=== PATIENT | female | born 1960 | race Caucasian/White ===

== ENCOUNTER 2016-09-30 08:41 | Inpatient (IN) | payer OTHER ==
--- NOTE | 2016-09-23 09:45 | HP ---
Admitting History and Physical - Primary Care Physician PCP: Yamil Harris - Admission Chief Complaint: High risk for breast cancer History of Present Illness: 55 yo female presents as high risk for breast cancer sec to family hx and BRCA 1 positivity. Patient is presenting for bilateral mastectomy with immediate reconstruction. Mammogram done 10/6015 was negative as well as US done 04/2016. History Source: Patient Limitations to Obtaining History: No Limitations - Past Medical History Cardiovascular: Yes: HTN Gastrointestinal: Yes: GERD Home Medications - Allergies Allergies/Adverse Reactions: Allergies Allergy/AdvReac Type Severity Reaction Status Date / Time No Known Allergies Allergy Verified 09/23/16 09:45 - Home Medications Home Medications (free text): omeprazole. lisinopril. Vitamin D Family Disease History - Family Disease History Family Disease History: CA: Sister (ovarian cancer at 38) Other Family History: cousin x 2-breast cancer. niece-breast cancer. paternal uncle-gastric cancer. father-colon cancer. paternal uncle-multiple myeloma Review of Systems - Review of Systems Constitutional: reports: No Symptoms Breasts: reports: No Symptoms Reported Physical Examination Constitutional: Yes: Well Nourished, Calm Breast(s): Yes: Other (Bilateral breasts without palpable masses or suspicious adenopathy noted. No skin changes, nipple discharge or retraction noted.) Problem List - Problems (1) At high risk for breast cancer Assessment/Plan: Bilateral mastectomy with implant reconstruction. Code(s): Z91.89 - [facility] PERSONAL RISK FACTORS, NOT ELSEWHERE CLASSIFIED
[2016-09-23 11:44] VITALS: BMI 28.3
[2016-09-30] MEDS ORDERED: DEXAMETHASONE SOD PHOSPHATE/PF 10 MG/ML SDV ONE (09:34)
[2016-09-30] MEDS ORDERED: MIDAZOLAM HCL 2 MG/2 ML SINGLE DOSE VIAL ONE (09:34)
[2016-09-30] MEDS ORDERED: BUPIVACAINE HCL/PF 2.5 MG/ML - 30 ML VIAL IJ ONE (09:34)
[2016-09-30] MEDS ORDERED: ceFAZolin SODIUM 1 GM VIAL ONE ×2 (09:53→11:42)
[2016-09-30] MEDS ORDERED: GENTAMICIN SO4 80 MG/2 ML VIAL ONE (09:53)
[2016-09-30] MEDS ORDERED: LIDOCAINE 1%-EPI 1:100,000 30 ML MDV IJ ONE (09:54)
[2016-09-30] MEDS ORDERED: BUPIVACAINE HCL/PF 0.5% (5MG/ML) 10 ML VIAL ONE (09:54)
[2016-09-30] MEDS ORDERED: ROCURONIUM BROMIDE 50 MG/5 ML VIAL ONE ×2 (10:19→11:45)
[2016-09-30] MEDS ORDERED: LIDOCAINE HCL/PF 2% SDV 5ML VIAL ONE (10:19)
[2016-09-30] MEDS ORDERED: PROPOFOL 20 ML ONE ×3 (10:19→13:36)
[2016-09-30] MEDS ORDERED: HYDROmorphone HCL/PF 1 MG/ML VIAL (FOR PYXIS CHARGING ONLY) ONE ×2 (11:14→13:47)
[2016-09-30] MEDS ORDERED: ONDANSETRON 4 MG/2 ML VIAL ONE (11:42)
[2016-09-30] MEDS ORDERED: DEXAMETHASONE SOD PHOSPHATE 4 MG/1 ML VIAL ONE ×2 (11:42→13:48)
[2016-09-30] MEDS ORDERED: DESFLURANE GAS 240 ML BOTTLE IH ONE (11:52)
[2016-09-30] MEDS ORDERED: ACETAMINOPHEN 325 MG TABLET (FP) PO PRN (13:13)
[2016-09-30] MEDS ORDERED: ONDANSETRON 4 MG/2 ML VIAL IVPB PRN (13:13)
[2016-09-30] MEDS ORDERED: ZOLPIDEM TARTRATE 5 MG TABLET PO PRN (13:13)
[2016-09-30] MEDS ORDERED: DEXTROSE 5%-0.45% SALINE 1,000 ML IV SCH (13:15)
[2016-09-30] MEDS ORDERED: NEOSTIGMINE METHYLSULFATE 0.5 MG/ML - 10 ML MDV ONE (13:36)
[2016-09-30] MEDS ORDERED: HYDROmorphone HCL CARPU-JECT 1 MG/1 ML DISP.SYRIN IVPUSH PRN (13:48)
[2016-09-30] MEDS ORDERED: PROMETHAZINE HCL 25 MG/1 ML VIAL IVPUSH PRN (13:48)
[2016-09-30] MEDS ORDERED: oxyCODONE HCL 5 MG TABLET PO PRN ×2 (13:52→13:53)
[2016-09-30] MEDS ORDERED: LACTATED RINGERS SOLUTION 1,000 ML IV SCH (14:00)
[2016-09-30] MEDS: diazePAM 2 MG TABLET PO SCH ×2 (14:30→21:05)
[2016-09-30] MEDS: traMADol HCL 50 MG TABLET PO SCH ×2 (14:30→21:05)
[2016-09-30] MEDS ORDERED: ACETAMINOPHEN 325 MG TABLET (FP) ONE (14:35)
[2016-09-30] MEDS ORDERED: diazePAM 2 MG TABLET ONE (14:36)
[2016-09-30] MEDS ORDERED: traMADol HCL 50 MG TABLET ONE (14:36)
[2016-09-30] MEDS: CEFAZOLIN 1 GM/D5W 50 ML IVPB SCH (17:41)
[2016-09-30] MEDS: ACETAMINOPHEN 325 MG TABLET (FP) PO SCH (21:04)
[2016-10-01] MEDS: CEFAZOLIN 1 GM/D5W 50 ML IVPB SCH ×5 (00:48→23:30)
[2016-10-01] MEDS: traMADol HCL 50 MG TABLET PO SCH ×4 (01:10→20:17)
[2016-10-01] MEDS: ACETAMINOPHEN 325 MG TABLET (FP) PO SCH ×5 (01:11→20:18)
[2016-10-01] MEDS: diazePAM 2 MG TABLET PO SCH ×3 (06:25→21:27)
[2016-10-01 09:04] LABS: MCH 29.6 pg (25.7-33.7); MCHC 34.1 g/dl (32.0-36.0); MEAN CELL VOLUME 86.7 fl (80-96); MEAN PLT VOLUME 8.3 fl (7.5-11.1); PLATELET COUNT 242 K/MM3 (134-434); RDW 12.3 % (11.6-15.6); WHITE BLOOD COUNT 12.4 K/mm3 (4.0-10.8)
--- NOTE | 2016-10-01 09:08 | PN ---
Progress Note, Physician Chief Complaint: S/P bilateral mastectomy POD#1 History of Present Illness: Patient reports good pain control. She does not have much of an appetite but is tolerating liquids. Patient otherwise has no other complaints. - Current Medication List Current Medications: Active Medications Acetaminophen (Tylenol -) 650 mg PO Q6H [facility] Last Admin: 10/01/16 01:11 Dose: 650 mg Diazepam (Valium -) 2 mg PO Q8H [facility] Last Admin: 10/01/16 06:25 Dose: 2 mg Fentanyl (Sublimaze Injection -) 50 mcg IVPUSH [id number] PRN PRN Reason: PAIN Stop: 10/03/16 13:49 Hydromorphone HCl (Dilaudid Injection -) 0.5 mg IVPUSH [id number] PRN PRN Reason: PAIN Stop: 10/03/16 13:49 Cefazolin Sodium (Ancef 1 Gm Premixed Ivpb -) 50 mls @ 100 mls/hr IVPB Q6H SONIA Stop: 10/07/16 17:59 Last Admin: 10/01/16 06:25 Dose: 100 mls/hr Dextrose/Sodium Chloride (D5-1/2ns -) 1,000 mls @ 100 mls/hr IV ASDIR SONIA Lactated Ringer's (Lactated Ringers Solution) 1,000 mls @ 125 mls/hr IV ASDIR SONIA Lisinopril (Prinivil) 20 mg PO DAILY [facility]ON[facility] Ondansetron HCl (Zofran Injection) 4 mg IVPB Q6H PRN PRN Reason: NAUSEA AND/OR VOMITING Oxycodone HCl (Roxicodone -) 5 mg PO Q4H PRN PRN Reason: MODERATE PAIN Oxycodone HCl (Roxicodone -) 10 mg PO Q4H PRN PRN Reason: SEVERE PAIN Pantoprazole Sodium (Protonix -) 40 mg PO DAILY [facility] Tramadol HCl (Ultram -) 50 mg PO Q6H [facility] Last Admin: 10/01/16 01:10 Dose: 50 mg Zolpidem Tartrate (Ambien -) 5 mg PO HS PRN PRN Reason: Insomnia Last Admin: 10/01/16 01:12 Dose: 5 mg - Objective Vital Signs: Vital Signs Temperature 98.9 F 10/01/16 06:00 Pulse Rate 75 10/01/16 06:00 Respiratory Rate 18 10/01/16 06:00 Blood Pressure 112/60 10/01/16 06:00 O2 Sat by Pulse Oximetry (%) 100 10/01/16 08:07 Constitutional: Yes: Well Nourished, Calm Breast(s): Yes: Other (Bilateral flaps with good color. Nipple areola complex is pink. FROILAN x 4 with serosanginous discharge noted.) Problem List - Problems (1) At high risk for breast cancer Code(s): Z91.89 - [facility] PERSONAL RISK FACTORS, NOT ELSEWHERE CLASSIFIED Assessment/Plan Assessment: POD #1 bilateral mastectomy with implant reconstruction Plan: DC IVF when tolerating po well Continue IV axbx Plan for discharge tomorrow with pain meds and axbx
--- NOTE | 2016-10-01 09:55 | PN ---
Progress Note (short form) - Note Progress Note: ANESTHESIOLOGY POST-OP CHECK 55F s/p B/L mastectomy under general anesthesia POD #1. Denies N/V, tolerating PO, ambulating, voiding. PAin /10. Vital Signs Temperature 98.9 F 10/01/16 06:00 Pulse Rate 75 10/01/16 06:00 Respiratory Rate 18 10/01/16 06:00 Blood Pressure 112/60 10/01/16 06:00 O2 Sat by Pulse Oximetry (%) 100 10/01/16 08:07 Active Medications Acetaminophen (Tylenol -) 650 mg PO Q6H [facility] Last Admin: 10/01/16 01:11 Dose: 650 mg Diazepam (Valium -) 2 mg PO Q8H [facility] Last Admin: 10/01/16 06:25 Dose: 2 mg Fentanyl (Sublimaze Injection -) 50 mcg IVPUSH [id number] PRN PRN Reason: PAIN Stop: 10/03/16 13:49 Hydromorphone HCl (Dilaudid Injection -) 0.5 mg IVPUSH [id number] PRN PRN Reason: PAIN Stop: 10/03/16 13:49 Cefazolin Sodium (Ancef 1 Gm Premixed Ivpb -) 50 mls @ 100 mls/hr IVPB Q6H [facility] Stop: 10/07/16 17:59 Last Admin: 10/01/16 06:25 Dose: 100 mls/hr Dextrose/Sodium Chloride (D5-1/2ns -) 1,000 mls @ 100 mls/hr IV ASDIR SONIA Lactated Ringer's (Lactated Ringers Solution) 1,000 mls @ 125 mls/hr IV ASDIR [facility] Lisinopril (Prinivil) 20 mg PO DAILY [facility] Ondansetron HCl (Zofran Injection) 4 mg IVPB Q6H PRN PRN Reason: NAUSEA AND/OR VOMITING Oxycodone HCl (Roxicodone -) 5 mg PO Q4H PRN PRN Reason: MODERATE PAIN Oxycodone HCl (Roxicodone -) 10 mg PO Q4H PRN PRN Reason: SEVERE PAIN Pantoprazole Sodium (Protonix -) 40 mg PO DAILY [facility] Tramadol HCl (Ultram -) 50 mg PO Q6H [facility] Last Admin: 10/01/16 01:10 Dose: 50 mg Zolpidem Tartrate (Ambien -) 5 mg PO HS PRN PRN Reason: Insomnia Last Admin: 10/01/16 01:12 Dose: 5 mg GEn: Awake, alert No apparent anesthesia complications. Pain well controlled. Continue management as per primary team
[2016-10-01] MEDS: LISINOPRIL 20 MG TABLET (FP) PO SCH (10:10)
[2016-10-01] MEDS: PANTOPRAZOLE 40 MG TABLET (FP) PO SCH (12:15)
--- NOTE | 2016-10-01 13:55 | OP ---
DATE OF OPERATION: 09/30/2016 PREOPERATIVE DIAGNOSIS: High risk for breast cancer with genetic susceptibility, BRCA1 positive mutation. POSTOPERATIVE DIAGNOSIS: High risk for breast cancer with genetic susceptibility, BRCA1 positive mutation. PROCEDURE: Bilateral total nipple-sparing mastectomies through an inframammary approach with bilateral direct implant reconstruction. ANESTHESIA: General endotracheal anesthesia. PRIMARY SURGEON: Dena Hollins MD WIRE BORDER ASSEMBLER: KEON Mayer PRIMARY SURGEON FOR THE BILATERAL DIRECT IMPLANT RECONSTRUCTION WITH ALLODERM: Dena Holt MD WIRE BORDER ASSEMBLER: KEON Robins COMPLICATIONS: There were no complications. INDICATIONS: Briefly, the patient is a 55-year-old postmenopausal white female of [place] descent. She has a strong family history of breast and ovarian cancer with a sister who of ovarian cancer at age 42. She has a paternal cousin with breast cancer at age 54. A paternal niece had breast cancer at age 31. A paternal second cousin had breast cancer at age 35. The patient tested BRCA1 positive with a deletion in exon 24. She had a prophylactic bilateral salpingo-oophorecetomy in March of 2016. She had a recent mammography, ultrasound, and MRI, which were essentially negative other than a finding in the upper outer aspect of the right breast on MRI, but ultrasound directed in this area was negative, likely consistent with a benign intramammary lymph node. The patient understood her options for risk reduction due to this BRCA1 positive mutation. She was counseled as to close surveillance versus prophylactic mastectomy versus tamoxifen for risk reduction. She decided to undergo prophylactic risk-reduction mastectomy. She understood our technique of doing a nipple-sparing mastectomy through an inframammary approach. She understood that we do retroareolar biopsies at the time of surgery, and if these showed cancer, we would remove the nipples. She understood the lack of any evidence shown for doing prophylactic sentinel lymph node biopsy. She had seen Dr. Holt and understood the direct implant reconstruction technique. She understood all risks and complications of the procedure including the risks of nipple loss hematoma, infection, and skin flap necrosis. DESCRIPTION OF PROCEDURE: The patient was brought in for the procedure through same-day surgery on September 30, 2016. In the holding area, site verification was made and informed consent was obtained. She was marked preoperatively by the plastic surgeon. She was brought into the operating room and laid on the OR table in the supine position. Venodynes were placed on the lower extremities prior to induction. She received a gram of Ancef prior to incision. She underwent general endotracheal anesthesia. Both breasts were sterilely prepped and draped in the usual fashion. Bilateral inframammary incisions were marked out, about 10 cm in length, symmetrically in the inframammary folds. The left mastectomy was first approached. Incision was made, and the skin edges were everted, and the breast tissue retracted inferiorly using Denison clamps. The skin flap was raised using the PEAK radiofrequency device superiorly to the level of the clavicle, medially to the level of the sternum, laterally to the level of the latissimus, and inferiorly below the level of the inframammary fold. The breast was taken down off the pectoralis major muscle from inferomedial to superolateral, completely removed intact. It was oriented with the long-lateral short-superior suture and weighed to allow for appropriate cosmetic result. Skin flaps were trimmed for good cosmetic result. A retroareolar biopsy was taken underneath the left nipple areolar complex and sent for frozen section, came back negative, so, the left nipple was spared. Hemostasis was achieved, and the wound was copiously irrigated with warm sterile saline. At this point, the right breast was approached. Again, inframammary incision was made about 10 cm in length symmetrical to the left inframammary incision. The skin edges were everted, and the breast tissue retracted inferiorly using Denison clamps. The skin flap was raised using the PEAK radiofrequency device superiorly to the level of the clavicle, medially to the level of the sternum, laterally to the level of the latissimus, and inferiorly below the level of the inframammary fold. The breast was taken down off the pectoralis major muscle using electrocautery from inferomedial to superolateral, and completely removed intact. It was oriented with the long-lateral short-superior suture and weighed to allow for appropriate cosmetic result. Skin flaps were trimmed for good cosmetic result, and a retroareolar biopsy was taken underneath the right nipple areolar complex, sent for frozen section, came back negative, sot the right nipple was spared. Hemostasis was achieved, and the wound was copiously irrigated with warm sterile saline. Both breast reconstructions were performed by Dr. Holt, placing the implants in a subpectoral location and suturing Alloderm to inferolateral aspects of both pectoralis major muscles until after the direct implant reconstructions. Two Hitesh drains were placed around each implant, brought through separate stab incisions on the lateral skin flaps, which were secured in place using 3-0 nylon suture. All wounds would be closed by plastic surgery using interrupted 3-0 deep dermal PDS suture and a running 4-0 subcuticular PDS suture. The patient did have a pectoral block prior to coming to the OR for postoperative pain control. The patient was extubated at the end of the case and brought to the post-anesthesia care unit in stable condition, where she will be admitted postoperatively for pain management and wound management. She will be placed on a DONOR SERVICES TECHNICIAN for postoperative pain control. All sponge and needle counts were correct at the end of the case. Estimated blood loss was about 100 mL, and she was hemodynamically stable throughout. DENA HOLLINS M.D. [id number]
[2016-10-02] MEDS: traMADol HCL 50 MG TABLET PO SCH ×2 (02:07→10:07)
[2016-10-02] MEDS: ACETAMINOPHEN 325 MG TABLET (FP) PO SCH ×2 (02:11→10:06)
[2016-10-02 06:41] VITALS: BP 129/69; PULSE 63; TEMP 98.1
[2016-10-02] MEDS: diazePAM 2 MG TABLET PO SCH (06:43)
[2016-10-02] MEDS: CEFAZOLIN 1 GM/D5W 50 ML IVPB SCH (06:43)
--- NOTE | 2016-10-02 09:12 | DS ---
Physical Examination Vital Signs: Vital Signs Temperature 98.1 F 10/02/16 06:00 Pulse Rate 63 10/02/16 06:00 Respiratory Rate 18 10/02/16 06:00 Blood Pressure 129/69 10/02/16 06:00 O2 Sat by Pulse Oximetry (%) 97 10/02/16 06:00 Constitutional: Yes: Well Nourished, No Distress Wound/Incision: Yes: Dressing Dry and Intact (Skin flaps and nipples warm and viable. JPs with serosanguineous effluent.) Neurological: Yes: Alert, Oriented Labs: CBC, BMP 10/01/16 07:47 Discharge Summary Reason For Visit: GENETIC SUSCEPTIBILITY Current Active Problems At high risk for breast cancer (Acute) Procedures: Principal: Bilateral prophylactic nipple sparing mastectomies with direct implant reconstruction Hospital Course: Patient did well after surgery, afebrile with stable vital signs. Pain well controlled. Condition: Good - Instructions Diet, Activity, Other Instructions: BREAST SURGERY INSTRUCTIONS Abraham Harris M.D., MARLENY Harris M.D., MARLENY Velázquez M.D., FACS 1. Please call the office at to make a follow up appointment with your surgeon. This number can be also used for any urgent issues you may have. 2. Call us immediately if any of the following occur: *Bleeding from the incision or drain site (a small amount is normal) *Fever or chills *Redness and worsening tenderness around the surgical site *Drainage of pus or fluid from the incision or drain site 3. You may change the surgical dressing two (2) days after your surgery, and may shower then. If you have drains, you may shower after they have been removed, until then take a sponge bath. 4. It is normal for there to be some bruising and tenderness around the surgical site, and the breast may also be firm in this area. 5. Please wear a comfortable bra (sports or surgical bra) all day and all night until your first follow-up visit with your surgeon. 6. The pain medicine you have been prescribed may make you constipated; make sure you drink plenty of water. You may use an over the counter laxative if needed. 7. You may resume your normal diet after surgery, although you may want to avoid rich foods for the first twenty-four (24) hours after surgery. Alcoholic drinks should be avoided while taking the prescribed pain medicine. 8. You may resume normal activities as long as there is no discomfort, but do not do upper body exercises until after your follow-up appointment. Do not lift anything heavier than a large phone book. You may resume driving once you have stopped taking the prescribed pain medicine and feel comfortable doing arm movements. Disposition: HOME - Home Medications Comprehensive Discharge Medication List: Ambulatory Orders Lisinopril [Prinivil] 20 mg PO DAILY 09/23/16 Multivitamin/Iron/Folic Acid [Centrum Women Tablet] 1 each PO DAILY 09/23/16 Omeprazole 40 mg PO DAILY 09/23/16
[2016-10-02] MEDS: PANTOPRAZOLE 40 MG TABLET (FP) PO SCH (10:06)
[2016-10-02] MEDS: LISINOPRIL 20 MG TABLET (FP) PO SCH (10:08)
--- NOTE | 2016-10-03 14:02 | OP ---
DATE OF OPERATION: 09/30/2016 SURGEON: Jose Ramon Holt MD INCINERATOR ATTENDANT SURGEON: Ana Stern PA-C This is a combined dictation with Dr. Dena Harris for bilateral mastectomy and reconstruction. This will be the dictation for the reconstructive purposes. Dr. Harris will dictate a separate operative note for the mastectomy portion. PREOPERATIVE DIAGNOSIS: POSTOPERATIVE DIAGNOSIS: OPERATIVE PROCEDURE: INDICATION: The patient with a strong family history of breast cancer was brought to the operating room by Dr. Dena Harris for bilateral bilateral mastectomy and a reconstructive procedure was carried out in the usual fashion by Dr. Harris. The risks and benefits of surgical versus nonsurgical alternatives as well as complications were described to the patient on multiple occasions preoperatively. She understands the surgical risks and benefits. OPERATIVE PROCEDURE IN DETAIL: The patient was taken to the operating room and after induction of general anesthesia in the supine position, both arms were extended and padded and Venodyne boots were placed. The entire chest wall was painted with ChloraPrep solution over the entire extent. Dr. Harris then performed bilateral mastectomies which will be dictated under separate cover. Upon completion of the mastectomy the wounds were copiously irrigated and hemostasis was obtained. Attention was then turned to the reconstructive procedure. The pectoralis major muscle was elevated from its position starting laterally and then elevating the muscle medially to the sternal fibers down to the inframammary folds elevating the origin of the muscle and creating a pocket for the new implant procedure. At this point, after elevating the muscle, AlloDerm contour large perforated Duo was rehydrated on the back table and then brought into the field. This was then sutured to the pectoralis major muscle beginning in the medial side along the inferior border of the muscle out to the lateral mammary fold. The AlloDerm was sutured using 3-0 Vicryl in a running fashion, 1 suture laterally and 1 suture medially. This was accomplished. Attention was turned the reconstructive implant. A Natrelle Inspira cohesive breast implant style SCF 650 mL was placed into the right breast pocket. The right breast tissue excised was 390 g of tissue. The left excised was 604 g of tissue which correlated to the asymmetry preoperatively. The exact same procedure was carried out symmetrically on the opposite left side. The same implant a Natrelle Inspira cohesive breast implant style SCF 650 mL was placed. The remaining sutures were closed on both sides symmetrically. The skin and subcutaneous tissue were closed over 2 15-Hitesh drains which were brought out through separate stab wounds. After copious irrigation of triple antibiotic solution in the usual fashion. The wound was closed in layers using 3 PDS suture in the deep dermis, and 4-0 in a subcuticular fashion. Dry sterile dressings with Steri-Strips, compression, Tegaderm and a fluff dressing with a Surgi-Bra was placed. She was awakened, extubated and transferred to the recovery room in satisfactory condition. The patient tolerated the procedure well. DENA HOLT M.D. [id number]
--- NOTE | 2016-10-05 15:16 | PATH ---
Surgical Pathology Report Patient Name: EBONI REHMAN Med. Rec. #: [id number] /Age/Gender: 1960 (Age: 55) / F Account: [id number] Location: [facility] MED[facility] Taken: 09/30/2016 Received: 09/30/2016 Reported: 10/05/2016 Physicians: Yamil Harris M.D. Specimen(s) Received A: RIGHT BREAST RETROAREOLAR BIOPSY. FS B: LEFT BREAST RETROAREOLR BIOPSY. FS C: RIGHT MASTECTOMY D: LEFT MASTECTOMY Clinical History Genetic susceptibility BRCA1+ Intraoperative Consult Diagnosis A. Right breast retroareolar biopsy, frozen section: Negative for malignancy. B. Left breast retroareolar biopsy, frozen section: Negative for malignancy. Evette Arora MD, 09/30/16. Final Diagnosis A. BREAST, RIGHT, RETROAREOLAR BIOPSY: BENIGN BREAST TISSUE. B. BREAST, LEFT, RETROAREOLAR BIOPSY: BENIGN BREAST TISSUE. C. BREAST, RIGHT, NIPPLE SPARING MASTECTOMY: INVASIVE DUCTAL CARCINOMA, POORLY DIFFERENTIATED, WITH SIGNIFICANT STROMAL LYMPHOCYTE INFILTRATION (THERESA HISTOLOGIC SCORE OF 8: TUBULE FORMATION: 3 OF 3, NUCLEAR PLEOMORPHISM 3 OF 3, MITOTIC RATE 2 OF 3). CARCINOMA FOCALITY AND SIZE: SINGLE FOCUS, 4.5 MM, UPPER INNER QUADRANT. SURGICAL RESECTION MARGINS: WIDELY NEGATIVE FOR CARCINOMA; CLOSEST RESECTION MARGIN (DEEP) IS 1.2 CM FROM INVASIVE CARCINOMA. LYMPHOVASCULAR INVASION: NOT IDENTIFIED. PERINEURAL INVASION: NOT IDENTIFIED. SURROUNDING BREAST TISSUE: FIBROCYSTIC CHANGE WITH CYSTIC APOCRINE METAPLASIA AND DUCT DILATATION. PATHOLOGIC STAGING: pT1a pNX (ALSO REFER TO CHECKLIST BELOW). RECEPTOR STATUS: REFER TO CHECKLIST BELOW. D. BREAST, LEFT, NIPPLE SPARING MASTECTOMY: BENIGN BREAST TISSUE WITH FIBROCYSTIC CHANGE WITH DUCT DILATATION. FOCAL BENIGN SKELETAL MUSCLE. Note: The case was discussed with Dr. Harris on 10/05/16. Comments Breast Invasive Carcinoma: Surgical Pathology Cancer Case Summary Based on AJCC/UICC TNM, 7th edition Procedure _x_ Nipple sparing mastectomy Lymph Node Sampling _x_ Not performed Specimen Laterality _x_ Right Tumor Size: Size of Largest Invasive Carcinoma Greatest dimension of largest focus of invasion over 1 mm: 4.5 mm (0.45 cm) Tumor Focality _x_ Single focus of invasive carcinoma Macroscopic and Microscopic Extent of Tumor Skin _x_ No skin present Nipple _x_ Not applicable (excisions less than total mastectomy) Skeletal Muscle _x_ No skeletal muscle present in part C Ductal Carcinoma In Situ (DCIS) _x_ No DCIS is present Histologic Type of Invasive Carcinoma : _x_ Invasive carcinoma of no special type (ductal, not otherwise specified) Histologic Grade: (Theresa Histologic Score) Tubular Differentiation _x_ Score 3 Nuclear Pleomorphism _x_ Score 3 Mitotic Rate _x_ Score 2 Overall Grade _x_ Grade 3: scores of 8 (poorly differentiated) Margins _x_ Margins uninvolved by invasive carcinoma (required only if residual invasive carcinoma is present in specimen) Distance from closest margin: 12 mm Specify margin: deep Lymph-Vascular Invasion _x_ Not identified Lymph Nodes Total number of lymph nodes examined (sentinel and nonsentinel): 0 Number of sentinel lymph nodes examined: 0 Number of lymph nodes with macrometastases ( > 2 mm): n/a Number of lymph nodes with micrometastases (>0.2 mm to 2 mm and/or >200cells):n/a Number of lymph nodes with isolated tumor cells (=0.2 mm and =200 cells): n/a Size of largest metastatic deposit (if present): n/a Extranodal Extension _x_ Not applicable Pathologic Staging (pTNM) Primary Tumor (Invasive Carcinoma): pT1a Regional Lymph Nodes (pN): pNX Distant Metastasis (pM): not applicable Biomarker Studies Results of ER and AZ studies performed on this specimen (block # C1) at [facility] are as follows: ER (clone [id number] mouse monoclonal antibody by [employer]): 0% nuclear staining (Negative). AZ (clone16 mouse monoclonal antibody by [employer]): 0% nuclear staining (Negative). Results of Her2 studies will be reported separately in an addendum. Positive and negative controls (internal if applicable) show appropriate results. Formalin fixation and cold ischemic times are within current ASCO/CAP recommendations for ER, AZ and Her2 testing. Electronically Signed Mauricio Nuñez M.D. Addendum Reported: 10/07/2016 Addendum Diagnosis Results of Her2 (IHC) & Ki-67 studies performed on block C1 at [place], [place] ([id number]) are as follows: Her2 IHC (EP3 from [employer], formerly known as [id number], using [employer] Polymer Refine detection kit): 1+ (Negative) Ki-67: ~30-35% (High proliferation index) Positive and negative controls (internal if applicable) show appropriate results. Mauricio Nuñez M.D. Gross Description A. Received fresh for frozen section labeled "right breast retroareolar biopsy" is a 1.8 x 1.2 x 1.0 cm portion of red and yellow soft tissue. A frozen section is performed on the specimen. The frozen section residue is entirely submitted in one cassette. B. Received fresh for frozen section labeled "left breast retroareolar biopsy" is a 2.0 x 1.4 x 1.0 cm portion of red and yellow soft tissue. A frozen section is performed on the specimen. The frozen section residue is entirely submitted in one cassette. C. Received in formalin, labeled "right mastectomy" is a 455 gram, 19.5 x 16.0 x 3.0 cm. right mastectomy specimen with a short suture marking the superior aspect and a long suture marking the lateral aspect of the specimen, per the surgeon. There is no skin or nipple present. The deep margin is inked black and the anterior soft tissue margin is inked blue. The specimen is serially sectioned from lateral to medial. Sectioning reveals a 0.4 x 0.4 x 0.4 cm baltazar, firm nodule in the upper inner quadrant (UIQ). The nodule is at 1.2 cm from the deep margin. The remaining breast parenchyma displays multiple foci of white fibrous tissue. Food Tray Assembler sections are submitted in 14 cassettes as follows: 1-2-UIQ nodule with deep margin; 8-5-fjnxzdnstp UIQ tissue; 5-6-lower inner quadrant; 7-9-upper outer quadrant; 10-12-lower outer quadrant; 13-anterior soft tissue margin; 14-deep margin. Time to formalin fixation: 60min Total formalin fixation time: ~29h D. Received in formalin, labeled "left mastectomy" is a 586 gram, 21.0 x 16.0 x 4.5 cm left mastectomy specimen with a short suture marking the superior aspect and a long suture marking the lateral aspect of the specimen, per the surgeon. There is no skin or nipple present. The deep margin is inked black and the anterior soft tissue margin is inked blue. The specimen is serially sectioned from medial to lateral. Sectioning reveals multiple foci of white fibrous tissue. No definitive masses are identified. Food Tray Assembler sections are submitted in 12 cassettes as follows: 1-3-upper outer quadrant; 4-5-lower outer quadrant; 6-7-upper inner quadrant; 8-10-lower inner quadrant; 11-anterior soft tissue margin; 12-deep margin. Time to formalin fixation: 49min Total formalin fixation time: ~29h 09/30/201609/30/2016
== END 2016-10-02 11:30 | disposition home or self-care (01) | DRG 585 ==
LOC: FM/S 08:41
PROVIDERS: ADMIT Surgery Surgical Oncology; ATTEND Surgery Surgical Oncology
PROC: 0HTV0ZZ Resection of Bilateral Breast, Open Approach (ICD-10-PCS; principal; 2016-09-30 11:08)
PROC: 0HUV0KZ Supplement Bilateral Breast with Nonautologous Tissue Substitute, Open Approach (ICD-10-PCS; 2016-09-30 11:08)
DX: Z40.01 Encounter for prophylactic removal of breast (principal); Z80.3 Family history of malignant neoplasm of breast; I10 Essential (primary) hypertension; K21.9 Gastro-esophageal reflux disease without esophagitis
CPT/HCPCS: 36415; 85027; 88305-TC; 88307-TC; 88331-TC; 94010; 94760

== ENCOUNTER 2017-05-12 09:24 | Day surgery (SDC) | payer OTHER ==
--- NOTE | 2017-05-09 09:21 | HP ---
Admitting History and Physical - Primary Care Physician PCP: Yamil Harris - Admission Chief Complaint: Right breast cancer History of Present Illness: 55 year old postmenapausal female BRCA 1 positive. She underwent BSO 2015 which was benign. 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 She underwent chemotherapy with Dr Shen. She is here for right entenel node biopsy posiible dissection History Source: Patient Limitations to Obtaining History: No Limitations - Past Medical History Cardiovascular: Yes: HTN Gastrointestinal: Yes: GERD - Past Surgical History Past Surgical History: Yes: Cholecystectomy (2011), Mastectomy (Bilateral mastectomies with incidental right breast cancer S/P chemotherapy) Additional Past Surgical History: BSO 03/2016 benign due to BRCA positivity - Smoking History Smoking history: Never smoked Have you smoked in the past 12 months: No - Alcohol/Substance Use Hx Alcohol Use: Yes (RARE) Home Medications - Allergies Allergies/Adverse Reactions: Allergies Allergy/AdvReac Type Severity Reaction Status Date / Time No Known Allergies Allergy Verified 09/23/16 09:45 - Home Medications Home Medications: Ambulatory Orders Lisinopril [Prinivil] 20 mg PO DAILY 09/23/16 Multivitamin/Iron/Folic Acid [Centrum Women Tablet] 1 each PO DAILY 09/23/16 Omeprazole 40 mg PO DAILY 09/23/16 Family Disease History - Family Disease History Family Disease History: CA: Sister (ovarian cancer at 38) Other Family History: pat cousin breast ca 54. pat 2nd cousin breast 35. neice 31 breast ca. paternal uncle mutiple myeloma 72 and uncle gastric ca 69 Physical Examination Constitutional: Yes: Well Nourished Breast(s): Yes: Other ( Bilateral nipple sparing mastctomies with implant reconstruction her incisions are well healed excellent cosmetic results, no palpable masses over implants or adenopathy) Problem List - Problems (1) Breast cancer, right breast Code(s): C50.911 - MALIGNANT NEOPLASM OF UNSP SITE OF RIGHT FEMALE BREAST Qualifiers: Breast location: upper inner quadrant of breast Patient sex: female Assessment/Plan Right sentenel node biopsy possible axillary node dissection, lymphoscintogram
[2017-05-10 14:55] VITALS: BMI 28.3
[2017-05-12] MEDS ORDERED: PROPOFOL 20 ML ONE (09:33)
[2017-05-12] MEDS ORDERED: MIDAZOLAM HCL 2 MG/2 ML SINGLE DOSE VIAL ONE (09:34)
[2017-05-12] MEDS ORDERED: SUCCINYLCHOLINE CHLORIDE 200 MG/10 ML VIAL ONE (09:34)
[2017-05-12] MEDS ORDERED: LIDOCAINE HCL/PF 2% SDV 5ML VIAL ONE (09:35)
[2017-05-12] MEDS ORDERED: BUPIVACAINE HCL/PF 2.5 MG/ML - 30 ML VIAL IJ ONE (09:49)
[2017-05-12] MEDS ORDERED: LIDOCAINE HCL 1%, 10 MG/ML (20ML VIAL) ONE (09:49)
[2017-05-12] MEDS ORDERED: ISOSULFAN BLUE 10 MG/ML VIAL SQ ONE (09:49)
[2017-05-12] MEDS ORDERED: LACTATED RINGERS SOLUTION 1,000 ML IV SCH ×2 (10:00→11:45)
[2017-05-12] MEDS ORDERED: oxyCODONE HCL 5 MG TABLET PO PRN (10:00)
[2017-05-12] MEDS ORDERED: ONDANSETRON 4 MG/2 ML VIAL IVPUSH PRN ×3 (10:00→11:42)
[2017-05-12] MEDS ORDERED: ONDANSETRON 4 MG/2 ML VIAL ONE (10:21)
[2017-05-12] MEDS ORDERED: ceFAZolin SODIUM 1 GM VIAL ONE (10:21)
[2017-05-12] MEDS ORDERED: DEXAMETHASONE SOD PHOSPHATE 4 MG/1 ML VIAL ONE (10:21)
[2017-05-12] MEDS ORDERED: BUPIVACAINE HCL/PF 0.25% (2.5MG/ML) 10 ML VIAL IJ ONE ×4 (10:59→11:19)
[2017-05-12] MEDS ORDERED: KETOROLAC TROMETHAMINE 30 MG/1 ML VIAL IVPUSH PRN (11:36)
[2017-05-12] MEDS ORDERED: DEXTROSE 5%-0.45% SALINE 1,000 ML IV SCH (11:45)
[2017-05-12] MEDS ORDERED: oxyCODONE HCL 5 MG TABLET ONE (12:42)
[2017-05-12] MEDS ORDERED: oxyCODONE HCL 5 MG TABLET PO ONE (12:42)
[2017-05-12 13:34] VITALS: TEMP 98.5
[2017-05-12 13:36] VITALS: BP 143/92; PULSE 78
--- NOTE | 2017-05-13 11:27 | OP ---
DATE OF OPERATION: 05/12/2014 PREOPERATIVE DIAGNOSIS: BRCA positive with history of bilateral prophylactic nipple-sparing mastectomy with a right breast upper inner quadrant cancer incidentally found. POSTOPERATIVE DIAGNOSIS: BRCA positive with history of bilateral prophylactic nipple-sparing mastectomy with a right breast upper inner quadrant cancer incidentally found. PROCEDURE: Right axillary sentinel lymph node biopsy. ANESTHESIA: General laryngeal mask airway anesthesia. PRIMARY SURGEON: Dena Harris MD COIL STRAPPER: KEON Mayer COMPLICATIONS: None. INDICATION FOR PROCEDURE: Briefly, the patient is a 56-year-old, G3, P2, postmenopausal white female of [place] descent. She has a strong family history with her sister who from ovarian cancer at age 42, as well as a paternal cousin who had breast cancer at age 54, a paternal niece had breast cancer at age 31, and a paternal second cousin had breast cancer at age 35. A paternal uncle had multiple myeloma, and another paternal uncle had gastric cancer. The patient was found to be BRCA positive with a lesion in exon 24. She underwent bilateral prophylactic nipple-sparing mastectomies on September 30, 2016, and final pathology did show a 4.5-mm poorly-differentiated invasive duct cancer in the upper inner aspect of the right breast which was triple negative. The patient was seen by Medical Oncology and it was decided to start chemotherapy and she underwent AC-T chemotherapy which she finished on April 01, 2017. Given this incidental cancer, it was decided that a lymph node evaluation should be performed, and she is brought in now for right axillary sentinel lymph node biopsy with possible axillary dissection if no sentinel nodes could be found. The patient underwent lymphoscintigraphy through a periareolar intradermal injection of technetium 99 at [facility] the morning of the surgery and then was brought to the [facility]. In the holding area, site verification was made, and informed consent was obtained. DESCRIPTION OF PROCEDURE: She was brought into the operating room and laid on the OR table in the supine position. Venodynes were placed on the lower extremities prior to induction. She received a gram of Ancef prior to incision. Next, 3 mL of Lymphazurin blue were injected intradermally around the periareolar region of the right breast nipple-areolar complex and massaged was instituted. The right breast was then sterilely prepped and draped in the usual fashion, and she did undergo general laryngeal mask airway anesthesia. An incision was made just below the hair-bearing area of the right axilla, and the Neoprobe was used, but there was no specific hot site found with the Neoprobe. Dissection was undertaken, and there was a faint count towards the upper level I region of the right axilla. On inspection, there was a blue lymphatic coursing to 2 blue hot lymph nodes in the upper level I region in the right axilla. These 2 nodes were dissected and sent down to Pathology for frozen section which came back negative. No other blue or hot nodes were found. The first sentinel node did have a 10-second gamma count of 29, with the second sentinel node with a 10-second gamma count of 23 and a background count of 7 after removal of these 2 nodes. Hemostasis was achieved, and the axillary wound was closed by closing the soft tissue using interrupted 2-0 plain suture. The skin was then closed using interrupted 3-0 deep dermal Vicryl suture and a running 4-0 subcuticular Biosyn suture. Mastisol and Steri-Strips were applied over the wound with a compressive dressing placed over this. The patient tolerated the procedure well, without difficulty, and laryngeal mask airway tube was removed. Then, she was brought to the postanesthesia care unit where she will be recovered and discharged home the same day. All sponge and needle counts were correct at the end of the case, and estimated blood loss was minimal. DENA HARRIS M.D. [id number]
--- NOTE | 2017-05-13 12:02 | PATH ---
Surgical Pathology Report Patient Name: EBONI REHMAN [facility]. Rec. #: [id number] /Age/Gender: 1960 (Age: 56) / F Account: [id number] Location: [facility] Taken: 05/12/2017 Received: 05/12/2017 Reported: 05/13/2017 Physicians: Yamil Harris M.D. Specimen(s) Received A: RIGHT AXILLARY SENTINEL NODE #1 B: RIGHT AXILLARY SENTINEL NODE #2 Clinical History Right breast cancer (upper/inner) Intraoperative Consult Diagnosis A. Right axillary sentinel node #1, frozen section and touch prep: One benign lymph node. B. Right axillary sentinel node #2, frozen section and touch prep: One benign lymph node. Suleman Melgar M.D. May 12, 2017 Final Diagnosis A. LYMPH NODE, RIGHT AXILLARY SENTINEL NODE #1, EXCISION: ONE BENIGN LYMPH NODE (0/1) BY STANDARD HEMATOXYLIN AND EOSIN STAIN (MULTIPLE LEVELS EXAMINED) AND AE1/3 IMMUNOSTAIN. B. LYMPH NODE, RIGHT AXILLARY SENTINEL NODE #2, EXCISION: ONE BENIGN LYMPH NODE (0/1) BY STANDARD HEMATOXYLIN AND EOSIN STAIN (MULTIPLE LEVELS EXAMINED) AND AE1/3 IMMUNOSTAIN. Comment: Also see prior specimen [id number]. The stage is now pT1a ypN0. Electronically Signed Suleman Melgar M.D. Gross Description A. Received fresh for frozen section labeled "right axillary sentinel node #1" is a 1.5 x 1.2 x 0.6 cm portion of yellow fatty tissue containing a 0.4 cm greatest dimension lymph node. Cut surface of the lymph node reveals no focal lesions. A touch prep is prepared. The lymph node is sectioned and frozen in its entirety and the frozen remainder is submitted in cassette A. B. Received fresh for frozen section labeled "right axillary sentinel node #2" is a 2.0 x 1.4 x 0.6 cm portion of yellow tissue containing a lymph node. Cut surface of the lymph node reveals no focal lesions. A touch prep is prepared. The lymph node is sectioned and frozen in its entirety and the frozen remainder is submitted in cassette B. [facility]/05/12/2017 [facility]/05/12/2017
== END 2017-05-12 13:30 | disposition home or self-care (01) ==
LOC: FASU 09:24
PROVIDERS: ATTEND Surgery Surgical Oncology
PROC: 07B50ZX Excision of Right Axillary Lymphatic, Open Approach, Diagnostic (ICD-10-PCS; principal; 2017-05-12 10:13)
DX: Z15.01 Genetic susceptibility to malignant neoplasm of breast (principal); Z90.13 Acquired absence of bilateral breasts and nipples; Z85.3 Personal history of malignant neoplasm of breast; Z92.21 Personal history of antineoplastic chemotherapy; I10 Essential (primary) hypertension; K21.9 Gastro-esophageal reflux disease without esophagitis
CPT/HCPCS: 78195-TC; 88108-TC; 88307-TC; 88331-TC; 88342-TC; 94760; A9541